=== PATIENT | female | born 1940 | race Caucasian/White ===

== ENCOUNTER 2017-04-22 16:25 | Emergency (ER) | payer MEDICARE, MEDICAID ==
[2017-04-22 16:53] VITALS: BP 128/86; PULSE 94; RESP 18; TEMP 97.4; O2SAT 98
--- NOTE | 2017-04-22 18:07 | RAD ---
PROCEDURE: Radiographs of the Right Shoulder HISTORY: shoulder pain s/p injury COMPARISON: None available. FINDINGS: BONES: Abnormal appearance of the glenoid/scapula appears consistent with fracture. Remainder the visualized osseous structures appear intact.The distal clavicle and underlying ribs appear intact. JOINTS: No acute dislocation. SOFT TISSUES: Soft tissues appear unremarkable. No evidence of radiopaque foreign body. IMPRESSION: Abnormal appearance of the glenoid/scapula appears consistent with fracture. CT may be considered for further evaluation if indicated.
--- NOTE | 2017-04-22 18:31 | ED PDOC ---
HPI: General Adult Time Seen by Provider: 04/22/17 17:11 Chief Complaint (Nursing): Upper Extremity Problem/Injury Chief Complaint (Provider): Right shoulder pain s/p trip and fall History Per: Patient History/Exam Limitations: no limitations Onset/Duration Of Symptoms: Hrs Have you had recent travel within the past 21 days to any of the following countries: [place], [place], [place] or [place]?: No Current Symptoms Are (Timing): Still Present Additional Complaint(s): Pt was walking and states the rubber part of her shoe got caught on the floor and she tripped landing on the right shoulder. Localized pain. Worse with movement. No N/V, chest pain, SOB Past Medical History Reviewed: Historical Data, Nursing Documentation, Vital Signs Vital Signs: Last Vital Signs Temp 97.4 F L 04/22/17 16:47 Pulse 94 H 04/22/17 16:47 Resp 18 04/22/17 16:47 BP 128/86 04/22/17 16:47 Pulse Ox 98 04/22/17 18:31 - Medical History PMH: No Chronic Diseases - Surgical History Surgical History: No Surg Hx - Family History Family History: States: No Known Family Hx - Living Arrangements Living Arrangements: With Family - Allergies Allergies/Adverse Reactions: Allergies Allergy/AdvReac Type Severity Reaction Status Date / Time No Known Allergies Allergy Verified 04/22/17 16:47 Review of Systems ROS Statement: Except As Marked, All Systems Reviewed And Found Negative Constitutional: Negative for: Fever, Chills Musculoskeletal: Positive for: Other (Left shoulder pain) Physical Exam - Reviewed Nursing Documentation Reviewed: Yes Vital Signs Reviewed: Yes - Physical Exam Appears: Positive for: Well, Non-toxic, No Acute Distress Head Exam: Positive for: ATRAUMATIC, NORMAL INSPECTION, NORMOCEPHALIC Skin: Positive for: Warm. Negative for: Normal Color (No ecchymosis, no erythema ) Eye Exam: Positive for: Normal appearance ENT: Positive for: Normal ENT Inspection Neck: Positive for: Normal, Painless ROM Cardiovascular/Chest: Positive for: Regular Rate, Rhythm Respiratory: Positive for: Normal Breath Sounds. Negative for: Accessory Muscle Use Back: Positive for: Normal Inspection Extremity: Positive for: Normal ROM Neurologic/Psych: Positive for: Alert, Oriented - ECG O2 Sat by Pulse Oximetry: 98 Medical Decision Making Medical Decision Making: Abnormal area seen inferior to glenoid cavity. X-ray reviewed with Dr. Hummel. Radiologist called for reading. Disposition - Clinical Impression Clinical Impression: Shoulder injury - Patient ED Disposition Is Patient to be Admitted: Transfer of Care - Disposition Disposition: Transfer of Care Disposition Time: 20:05 Condition: STABLE Forms: [employer] (Syrian)
--- NOTE | 2017-04-22 20:14 | CT ---
EXAM: CT Right Upper Extremity Without Intravenous Contrast, Shoulder EXAM DATE/TIME: 04/22/2017 6:38 PM CLINICAL HISTORY: 77 years old, female; Injury or trauma; Fall; Initial encounter; Blunt trauma (contusions or hematomas; Shoulder; Right; Additional info: Shoulder, include scapula TECHNIQUE: Axial computed tomography images of the right shoulder without intravenous contrast. All CT scans at this facility use one or more dose reduction techniques, viz.: automated exposure control; ma/kV adjustment per patient size (including targeted exams where dose is matched to indication; i.e. head); or iterative reconstruction technique. Coronal and sagittal reformatted images were created and reviewed. COMPARISON: There are no prior studies for comparison. FINDINGS: Bones/joints: Clavicle is intact. There are degenerative changes at the acromioclavicular joint. There are degenerative changes in the acromion. Proximal humerus is intact. There are degenerative changes in the humeral head. There is a comminuted fracture of the inferior aspect of the glenoid. There is inferior and anterior displacement of the largest inferior fracture. Fragment appears rotated. Body of the scapula is intact. Acromium and coracoid processes are intact. There are degenerative changes in the acromium. No rib fractures are identified. Soft tissues: No focal infiltrate is seen in the visualized portion of the right lung. There is a 4.8 mm superior segment right lower lobe nodule. There is a 6.3 mm right middle lobe nodule IMPRESSION: Fracture of the inferior aspect of the glenoid Pulmonary nodules, infectious/inflammatory versus neoplastic, clinical correlation advised For low-risk patients recommend follow-up chest CT at 3-6 months. If unchanged consider an additional follow-up CT at 18-24 months. For high-risk patients (smoking history or other known risk factors) initial follow-up chest CT at 3-6 months and if unchanged, 18-24 months.
--- NOTE | 2017-04-22 21:09 | ED PDOC ---
"- ECG O2 Sat by Pulse Oximetry: 98 - Progress ED Course And Treament: 77yo F in ER for eval of shoulder injury pending CT read. xray shows fx to scapular pt given Tylenol for pain Re-evaluation Time: 21:08 Condition: Re-examined (pt still with pain given tramadol) Medical Decision Making Medical Decision Making: Ct scan: FINDINGS: Bones/joints: Clavicle is intact. There are degenerative changes at the acromioclavicular joint. There are degenerative changes in the acromion. Proximal humerus is intact. There are degenerative changes in the humeral head. There is a comminuted fracture of the inferior aspect of the glenoid. There is inferior and anterior displacement of the largest inferior fracture. Fragment appears rotated. Body of the scapula is intact. Acromium and coracoid processes are intact. There are degenerative changes in the acromium. No rib fractures are identified. Soft tissues: No focal infiltrate is seen in the visualized portion of the right lung. There is a 4.8 mm superior segment right lower lobe nodule. There is a 6.3 mm right middle lobe nodule IMPRESSION: Fracture of the inferior aspect of the glenoid Pulmonary nodules, infectious/inflammatory versus neoplastic, clinical correlation advised For low-risk patients recommend follow-up chest CT at 3-6 months. If unchanged consider an additional follow-up CT at 18-24 months. For high-risk patients (smoking history or other known risk factors) initial follow-up chest CT at 3-6 months and if unchanged, 18-24 months. SARAH GOINS | Final Radiology Report CONFIDENTIALITY STATEMENT This report is intended only for use by the referring physician, and only in accordance with law. If you received this in error, call [phone]. Page 2 of 2 Thank you for allowing us to participate in the care of your patient. Dictated and Authenticated by: Saritha Khan MD 04/22/2017 8:13 PM Eastern Time ([place] & [place]) MD Wilder consulted-suggests sling and f.u in office this week. Pt will be d/ c with ultram for pain control pt given copy of CT scan results. Disposition - Clinical Impression Clinical Impression: Shoulder injury, Scapular fracture - POA Present On Arrival: None - Disposition Referrals: Boiardo,Bridger A III, MD [Staff Provider] - [facility] [Outside] Disposition: Routine/Home Disposition Time: 21:48 Condition: STABLE Prescriptions: Tramadol HCl [Ultram] 50 mg PO Q6 #15 tab Instructions: Scapular Fracture (ED) Print Language: GERMAN Progress Note - Review of Symptoms General: No: Chills, Night Sweats, Fatigue, Malaise, Appetite, Other HEENT: No: Head Aches, Visual Changes, Eye Pain, Ear Pain, Dysphasia, Sinus Congestion, Post Nasal Drip, Sore Throat, Other Cardiovascular: No: Chest Pain, Palpitations, Orthopnea, Paroxysmal Noc. Dyspnea , Edema, Light Headedness, Other Gastrointestinal: No: Nausea, Vomiting, Abdominal Pain, Diarrhea, Constipation, Melena, Hematochezia, Other Genitourinary: No: Dysuria, Frequency, Incontinence, Hematuria, Retention, Other Musculoskeletal: No: Muscle Pain, Joint Pain, Other Neurological: No: Weakness, Numbness, Incoordination, Change in speech, Confusion, Seizures, Other"
== END 2017-04-22 22:15 | disposition home or self-care (01) ==
LOC: H.ER 16:25
DX: S42.101A Fracture of unspecified part of scapula, right shoulder, initial encounter for closed fracture (principal); W01.0XXA Fall on same level from slipping, tripping and stumbling without subsequent striking against object, initial encounter; Y92.89 Other specified places as the place of occurrence of the external cause

== ENCOUNTER 2018-06-27 12:01 | Observation (INO) | payer MEDICARE, MEDICAID ==
[2018-06-27] MEDS ORDERED: Albuterol-Ipratrop 3 mg / 0.5 (3 ml) UD INH STA (12:34)
--- NOTE | 2018-06-27 12:40 | ED PDOC ---
HPI: Chest Pain Time Seen by Provider: 06/27/18 12:12 Chief Complaint (Nursing): Chest Pain Chief Complaint (Provider): Chest Pain History Per: Patient History/Exam Limitations: no limitations Onset/Duration Of Symptoms: Days (x3) Current Symptoms Are (Timing): Still Present Additional Complaint(s): Patient is an 78 y/o female with a PMHx of asthma and diabetes who was brought into the ED for evaluation of a cough productive of white sputum for the past three days. Patient admits to mid-sternal chest pain and SOB when coughing. Patient denies fever. PCP: None Provided Past Medical History Reviewed: Historical Data, Nursing Documentation, Vital Signs Vital Signs: Last Vital Signs Temp 98.3 F 06/27/18 12:14 Pulse 90 06/27/18 12:14 Resp 16 06/27/18 12:14 BP 123/73 06/27/18 12:33 Pulse Ox 99 06/27/18 12:14 - Medical History PMH: Asthma, Diabetes Denies: Chronic Kidney Disease - Surgical History Surgical History: No Surg Hx - Family History Family History: States: No Known Family Hx - Social History Current smoker - smoking cessation education provided: No Ex-Smoker (has not smoked in the last 12 months): No - Home Medications Home Medications: Ambulatory Orders Medication Instructions Recorded Esomeprazole Magnesium [Nexium] 40 mg PO DAILY 06/27/18 metFORMIN [glucOPHAGE] 500 mg PO BID 06/27/18 Azithromycin [Zithromax] 250 mg PO DAILY #4 tab 06/28/18 Promethazine DM [Phenergan DM 5 ml PO Q6 PRN #200 cup 06/28/18 Syrup] - Allergies Allergies/Adverse Reactions: Allergies Allergy/AdvReac Type Severity Reaction Status Date / Time No Known Allergies Allergy Verified 04/22/17 16:47 Review of Systems ROS Statement: Except As Marked, All Systems Reviewed And Found Negative Constitutional: Negative for: Fever Cardiovascular: Positive for: Chest Pain (midsternal) Respiratory: Positive for: Cough, Shortness of Breath (when coughing), Sputum (white) Physical Exam - Reviewed Nursing Documentation Reviewed: Yes Vital Signs Reviewed: Yes - Physical Exam Appears: Positive for: Non-toxic, No Acute Distress Head Exam: Positive for: ATRAUMATIC, NORMAL INSPECTION, NORMOCEPHALIC Skin: Positive for: Normal Color, Warm, Dry Eye Exam: Positive for: EOMI, Normal appearance, PERRL ENT: Positive for: Normal ENT Inspection Neck: Positive for: Normal, Painless ROM, Supple Cardiovascular/Chest: Positive for: Regular Rate, Rhythm. Negative for: Murmur Respiratory: Positive for: Normal Breath Sounds. Negative for: Respiratory Distress Gastrointestinal/Abdominal: Positive for: Normal Exam, Soft. Negative for: Tenderness Back: Positive for: Normal Inspection. Negative for: L CVA Tenderness, R CVA Tenderness, Vertebral Tenderness Extremity: Positive for: Normal ROM. Negative for: Pedal Edema, Deformity Neurologic/Psych: Positive for: Alert, Oriented. Negative for: Motor/Sensory Deficits - Laboratory Results Result Diagrams: 06/28/18 05:21 06/28/18 05:21 - ECG ECG Rhythm: Positive for: Normal ST Segment, Sinus Rhythm Rate: 84 O2 Sat by Pulse Oximetry: 99 (RA) Pulse Ox Interpretation: Normal Medical Decision Making Medical Decision Making: Time: 1232 DDx includes but not limited to URI, PNA, and pleuritic chest pain. Plan: EKG CMP Troponin I Urine Dipstick CBC PTT Prothrombin Time Chest Portable [Rad] Duoneb 3 ml INH Blood Culture Glucose, Blood, POC Peak Flow Pre/Post TX .Pre/Post Treatment UA Time: 1504 FINDINGS: Examination limited by habitus. LUNGS: Hypoinflation. No focal consolidation. Please note that chest x-ray has limited sensitivity for the detection of pulmonary masses. PLEURA: No significant pleural effusion identified. No definite pneumothorax . CARDIOVASCULAR: Heart size appears within normal limits. CT aorta. Atherosclerotic of the aorta. OSSEOUS STRUCTURES: Osseous demineralization. Degenerative changes. VISUALIZED UPPER ABDOMEN: Unremarkable. OTHER FINDINGS: None. IMPRESSION: No focal consolidation identified. Scribe Attestation: Documented by Jb Remi, acting as a scribe for Kezia Meier MD. Provider Scribe Attestation: All medical record entries made by the Scribe were at my direction and personally dictated by me. I have reviewed the chart and agree that the record accurately reflects my personal performance of the history, physical exam, medical decision making, and the department course for this patient. I have also personally directed, reviewed, and agree with the discharge instructions and disposition. Disposition - Clinical Impression Clinical Impression: Chest pain, Acute bronchitis - Patient ED Disposition Is Patient to be Admitted: Yes - Disposition Disposition Time: 13:37 Condition: STABLE - Pt Status Changed To: Hospital Disposition Of: Observation - POA Present On Arrival: None
[2018-06-27] MEDS ORDERED: Albuterol-Ipratrop 3 mg / 0.5 (3 ml) UD ONE (12:56)
[2018-06-27 12:59] LABS: BASO % 0.6 % (0.0-2.0); EOS # 0.1 K/uL (0.0-0.7); HEMOGLOBIN 11.6 g/dL (12.0-16.0); LYMPH # 1.5 K/uL (1.0-4.3); LYMPH % 25.9 % (20.0-40.0); MEAN CORPUSCULAR HEMOGLOBIN 24.9 pg (27.0-31.0); MEAN PLATELET VOLUME 8.9 fl (7.2-11.7); MONO # 0.6 K/uL (0.0-0.8); MONO % 10.5 % (0.0-10.0); NEUT # 3.5 K/uL (1.8-7.0); RBC 4.67 Mil/uL (3.80-5.20); RED CELL DISTRIBUTION WIDTH 19.1 % (11.5-14.5); WHITE BLOOD COUNT 5.8 K/uL (4.8-10.8)
[2018-06-27 13:07] LABS: INR 1.1
[2018-06-27 13:10] LABS: PARTIAL THROMBOPLASTIN TIME 28.5 Seconds (25.6-37.1)
[2018-06-27 13:17] LABS: ALB/GLOB RATIO 1.1 (1.0-2.1); ALBUMIN 4.2 g/dL (3.5-5.0); ALT/SGPT 32 U/L (9-52); AST/SGOT 31 U/L (14-36); BLOOD UREA NITROGEN 13 mg/dl (7-17); CALCIUM 9.5 mg/dL (8.4-10.2); GFR NON-AFRICAN AMERICAN > 60
[2018-06-27] MEDS ORDERED: Azithromycin 500 MG in Sodium Chloride 0.9% 250 ML IV STA (13:34)
[2018-06-27] MEDS ORDERED: Azithromycin 500 MG IV IVPB ONE (13:45)
[2018-06-27] MEDS ORDERED: Albuterol-Ipratrop 3 mg / 0.5 (3 ml) UD INH PRN (14:23)
[2018-06-27] MEDS ORDERED: Promethazine DM 6.25 mg-15 mg/5 ml Syrup PO PRN (14:23)
--- NOTE | 2018-06-27 14:58 | RAD ---
HISTORY: CP COMPARISON: Chest x-ray performed 05/04/13 TECHNIQUE: Chest, one view. FINDINGS: Examination limited by habitus. LUNGS: Hypoinflation. No focal consolidation. Please note that chest x-ray has limited sensitivity for the detection of pulmonary masses. PLEURA: No significant pleural effusion identified. No definite pneumothorax . CARDIOVASCULAR: Heart size appears within normal limits. CT aorta. Atherosclerotic of the aorta. OSSEOUS STRUCTURES: Osseous demineralization. Degenerative changes. VISUALIZED UPPER ABDOMEN: Unremarkable. OTHER FINDINGS: None. IMPRESSION: No focal consolidation identified.
[2018-06-27 15:20] LABS: SQUAMOUS EPITHIAL 1 /hpf (0-5); URINE BILIRUBIN NEGATIVE (NEGATIVE); URINE BLOOD NEGATIVE (NEGATIVE); URINE CLARITY CLEAR (Clear); URINE COLOR YELLOW (YELLOW); URINE GLUCOSE (UA) NEG (NEGATIVE); URINE LEUKOCYTE ESTERASE NEG Leu/uL (Negative); URINE PROTEIN NEGATIVE (NEGATIVE); URINE UROBILINOGEN 0.2-1.0 mg/dL (0.2-1.0)
--- NOTE | 2018-06-27 18:49 | CARD ---
APPROVED REPORT Date of service: 06/27/2018 EKG Measurement Heart [id number] <Conclusion> Normal sinus rhythm Normal ECG
[2018-06-27] MEDS: guaiFENesin 600 mg ER Tab PO SCH (21:49)
[2018-06-28 06:46] LABS: BASO # 0.1 K/uL (0.0-0.2); BASO % 0.8 % (0.0-2.0); EOS # 0.2 K/uL (0.0-0.7); EOS % 2.9 % (0.0-4.0); HEMOGLOBIN 11.5 g/dL (12.0-16.0); LYMPH % 33.9 % (20.0-40.0); MEAN CELL VOLUME 77.2 fl (81.0-99.0); MEAN CORPUSCULAR HEMOGLOBIN 25.1 pg (27.0-31.0); MEAN CORPUSCULAR HGB CONC 32.5 g/dL (33.0-37.0); MEAN PLATELET VOLUME 9.3 fl (7.2-11.7); MONO # 0.5 K/uL (0.0-0.8); MONO % 8.9 % (0.0-10.0); NEUT # 3.2 K/uL (1.8-7.0); NEUT % 53.5 % (50.0-75.0); RBC 4.58 Mil/uL (3.80-5.20); RED CELL DISTRIBUTION WIDTH 19.1 % (11.5-14.5); WHITE BLOOD COUNT 5.9 K/uL (4.8-10.8)
[2018-06-28 06:48] LABS: ALB/GLOB RATIO 1.1 (1.0-2.1); ALBUMIN 3.9 g/dL (3.5-5.0); ALT/SGPT 33 U/L (9-52); AST/SGOT 28 U/L (14-36); BLOOD UREA NITROGEN 16 mg/dl (7-17); CALCIUM 9.3 mg/dL (8.4-10.2); GFR NON-AFRICAN AMERICAN > 60
[2018-06-28] MEDS: guaiFENesin 600 mg ER Tab PO SCH (08:59)
[2018-06-28] MEDS ORDERED: Azithromycin 500 MG in Sodium Chloride 0.9% 250 ML IVPB SCH (09:00)
[2018-06-28] MEDS ORDERED: Pantoprazole 40 mg EC Tab PO SCH (09:00)
--- NOTE | 2018-06-28 13:22 | CP.PCM.CON ---
History of Present Illness - History of Present Illness History of Present Illness: I was asked to see patinet by Dr Garcia and Dr Gaines patient seen 07/04/18 1320 Patient is a 78 year old fmelae with HTN, DM who presents with chest pain. Patient has had URI and cough for the past 2 weeks, and was noted to have dyspne a and makayla paiin. Her pain is pleuritic. She denies exertional chest pain. Review of Systems - Constitutional Constitutional: absent: As Per HPI, Anorexia, Chills, Daytime Sleepiness, Excessive Sweating, Fatigue, Fever, Frequent Falls, Headache, Increased Appetite, Lethargy, Malaise, Night Sweats, Snoring, Sleep Apnea, Weight Gain, Weight Loss, Weakness, Other - EENT Eyes: absent: As Per HPI, Blind Spots, Blurred Vision, Change in Vision, Decreased Night Vision, Diplopia, Discharge, Dry Eye, Exophthalmos, Floaters, Irritation, Itchy Eyes, Loss of Peripheral Vision, Pain, Photophobia, Requires Corrective Lenses, Sees Flashes, Spots in Vision, Tunnel Vision, Other Visual Disturbances, Loss of Vision, Other Ears: absent: As Per HPI, Decreased Hearing, Ear Discharge, Ear Pain, Tinnitus, Abnormal Hearing, Disequilibrium, Dizziness, Other Nose/Mouth/Throat: absent: As Per HPI, Epistaxis, Nasal Congestion, Nasal Discharge, Nasal Obstruction, Nasal Trauma, Nose Pain, Post Nasal Drip, Sinus Pain, Sinus Pressure, Bleeding Gums, Change in Voice, Dental Pain, Dry Mouth, Dysphagia, Halitosis, Hoarsness, Lip Swelling, Mouth Lesions, Mouth Pain, Odynophagia, Sore Throat, Throat Swelling, Tongue Swelling, Facial Pain, Neck Pain, Neck Mass, Other - Breasts Breasts: absent: As Per HPI, Change in Shape, Mass, Pain, Nipple Discharge, Nipple Inversion, Skin Changes, Swelling, Other - Cardiovascular Cardiovascular: absent: As Per HPI, Acrocyanosis, Chest Pain, Chest Pain at Rest, Chest Pain with Activity, Claudication, Diaphoresis, Dyspnea, Dyspnea on Exertion, Edema, Irregular Heart Rhythm, Pain Radiating to Arm/Neck/Jaw, Leg Edema, Leg Ulcers, Lightheadedness, Orthopnea, Palpitations, Paroxysmal Nocturnal Dyspnea, Pedal Edema, Radiating Pain, Rapid Heart Rate, Slow Heart Rate, Syncope, Other - Respiratory Respiratory: Cough, Chest Congestion - Gastrointestinal Gastrointestinal: absent: As Per HPI, Abdominal Pain, Belching, Bloating, Change in Bowel Habits, Change in Stool Character, Coffee Ground Emesis, Constipation, Cramping, Diarrhea, Dyspepsia, Dysphagia, Early Satiety, Excessive Flatus, Fecal Incontinence, Heartburn, Hematemesis, Hematochezia, Loose Stools, Melena, Nausea, Odynophagia, Temesmus, Vomiting, Other - Genitourinary Genitourinary: absent: As Per HPI, Change in Urinary Stream, Difficulty Urinating, Dysuria, Flank Pain, Hematuria, Pyuria, Nocturia, Urinary Incontinence, Urinary Frequency, Urinary Hesitance, Urinary Urgency, Voiding Freq/Small Amts, Freq UTI, Hx Renal/Bladder Calculi, Hx /Renal Surgery, Blad anderson Distension, Other - Musculoskeletal Musculoskeletal: absent: As Per HPI, Abnormal Gait, Arthralgias, Atrophy, Back Pain, Deformity, Joint Swelling, Limited Range of Motion, Loss of Height, Muscle Cramps, Muscle Weakness, Myalgias, Neck Pain, Numbness, Radiating Pain into Limb, Stiffness, Tingling, Other - Integumentary Integumentary: absent: As Per HPI, Acne, Alopecia, Bleeding Lesions, Change in Hair, Change in Nails, Change in Pigmentation, Changing Lesions, Dry Skin, Erythema, Furuncle, Hirsutism, Lesions, New Lesions, Non-Healing Lesions, Photosensitivity, Pruritus, Rash, Skin Pain, Skin Ulcer, Sores, Striae, Swelling, Unusual Bruising, Wounds, Jaundice, Other - Neurological Neurological: absent: As Per HPI, Abnormal Gait, Abnormal Hearing, Abnormal Movements, Abnormal Speech, Behavioral Changes, Burning Sensations, Confusion, Convulsions, Disequilibrium, Dizziness, Numbness, Focal Weakness, Frequent Falls, Headaches, Lack of Coordination, Loss of Vision, Memory Loss, Paresthesias, Radicular Pain, Restless Legs, Sensory Deficit, Syncope, Tingling, Tremor, Vertigo, Weakness, Other Visual Disturbances, Other - Psychiatric Psychiatric: absent: As Per HPI, Abnormal Sleep Pattern, Anhedonia, Anxiety, Auditory Hallucinations, Behavioral Changes, Change in Appetite, Change in Libido, Confusion, Depression, Difficulty Concentrating, Hallucinations, Homicidal Ideation, Hopelessness, Irritability, Memory Loss, Mood Swings, Panic Attacks, Paranoia, Suicidal Ideation, Visual Hallucinations, Tactile Hallucinations, Other - Endocrine Endocrine: absent: As Per HPI, Change in Body Appearance, Change in Libido, Cold Intolorance, Deepening of Voice, Excessive Sweating, Fatigue, Flushing, Heat Intolorance, Increase in Ring/Shoe/Hat Size, Palpitations, Polydipsia, Polyphagia, Polyuria, Other - Hematologic/Lymphatic Hematologic: absent: As Per HPI, Easy Bleeding, Easy Bruising, Lymphadenopathy, Other Past Patient History - Past Social History Smoking Status: Never Smoked - CARDIAC Hx Cardiac Disorders: No - PULMONARY Hx Asthma: Yes - NEUROLOGICAL Hx Neurological Disorder: No - HEENT Hx HEENT Problems: No - RENAL Hx Chronic Kidney Disease: No - ENDOCRINE/METABOLIC Hx Endocrine Disorders: Yes (diabetes type 2) - HEMATOLOGICAL/ONCOLOGICAL Hx AIDS: No Hx Human Immunodeficiency Virus (HIV): No - INTEGUMENTARY Hx Dermatological Problems: No - MUSCULOSKELETAL/RHEUMATOLOGICAL Hx Falls: No - GASTROINTESTINAL Hx Gastrointestinal Disorders: No - GENITOURINARY/GYNECOLOGICAL Hx Genitourinary Disorders: No - PSYCHIATRIC Hx Substance Use: No - SURGICAL HISTORY Hx Surgeries: No Meds Allergies/Adverse Reactions: Allergies Allergy/AdvReac Type Severity Reaction Status Date / Time No Known Allergies Allergy Verified 04/22/17 16:47 - Medications Medications: Current Medications Albuterol/Ipratropium (Duoneb 3 Mg/0.5 Mg (3 Ml) Ud) 3 ml INH RQ4 PRN PRN Reason: Shortness of Breath Guaifenesin (Mucinex La) 600 mg PO Q12 STEFANIE Last Admin: 06/28/18 08:59 Dose: 600 mg Azithromycin 500 mg/ Sodium (Chloride) 250 mls @ 250 mls/hr IVPB DAILY STEFANIE; Protocol Last Admin: 06/28/18 10:23 Dose: 250 mls/hr Metformin HCl (Glucophage) 500 mg PO BID STEFANIE Last Admin: 06/28/18 08:59 Dose: 500 mg Pantoprazole Sodium (Protonix Ec Tab) 40 mg PO DAILY STEFANIE Last Admin: 06/28/18 08:59 Dose: 40 mg Promethazine HCl/Dextromethorphan (Phenergan Dm Syrup) 5 ml PO Q6 PRN PRN Reason: Cough Last Admin: 06/28/18 10:28 Dose: 5 ml Physical Exam - Constitutional Appears: Non-toxic - Head Exam Head Exam: NORMAL INSPECTION - Eye Exam Eye Exam: Normal appearance - ENT Exam ENT Exam: Mucous Membranes Moist - Neck Exam Neck exam: Positive for: Full Rom - Respiratory Exam Respiratory Exam: Decreased Breath Sounds - Cardiovascular Exam Cardiovascular Exam: REGULAR RHYTHM - GI/Abdominal Exam GI & Abdominal Exam: Normal Bowel Sounds - Rectal Exam Rectal Exam: Deferred - Extremities Exam Extremities exam: Negative for: pedal edema - Back Exam Back exam: NORMAL INSPECTION - Neurological Exam Neurological exam: Alert, Oriented x3 - Psychiatric Exam Psychiatric exam: Normal Affect - Skin Skin Exam: Normal Color Results - Vital Signs Recent Vital Signs: Last Vital Signs Temp 98.1 F 06/28/18 12:58 Pulse 84 06/28/18 12:58 Resp 20 06/28/18 12:58 BP 96/54 L 06/28/18 12:58 Pulse Ox 96 06/28/18 12:58 - Labs Result Diagrams: 06/28/18 05:21 06/28/18 05:21 Labs: Laboratory Results - last 24 hr 06/27/18 06/27/18 06/27/18 12:45 14:39 15:50 WBC RBC Hgb Hct MCV MCH MCHC RDW Plt Count MPV Neut % (Auto) Lymph % (Auto) [place] % (Auto) Eos % (Auto) Baso % (Auto) Neut # (Auto) Lymph # (Auto) [place] # (Auto) Eos # (Auto) Baso # (Auto) Sodium Potassium Chloride Carbon Dioxide Anion Gap BUN Creatinine Est GFR ( Amer) Est GFR (Non-Af Amer) POC Glucose (mg/dL) 81 Random Glucose Calcium Total Bilirubin AST ALT Alkaline Phosphatase Troponin I < 0.0120 Total Protein Albumin Globulin Albumin/Globulin Ratio Urine Color Yellow Urine Clarity Clear Urine pH 6.0 Ur Specific [place] 1.011 Urine Protein Negative Urine Glucose (UA) Neg Urine Ketones Negative Urine Blood Negative Urine Nitrate Negative Urine Bilirubin Negative Urine Urobilinogen 0.2-1.0 Ur Leukocyte Esterase Neg Urine RBC (Auto) 2 Urine Microscopic WBC 1 Ur Squamous Epith Cells 1 06/27/18 06/27/18 06/28/18 20:00 21:46 05:21 WBC 5.9 RBC 4.58 Hgb 11.5 L Hct 35.3 MCV 77.2 L MCH 25.1 L MCHC 32.5 L RDW 19.1 H Plt Count 170 MPV 9.3 Neut % (Auto) 53.5 Lymph % (Auto) 33.9 [place] % (Auto) 8.9 Eos % (Auto) 2.9 Baso % (Auto) 0.8 Neut # (Auto) 3.2 Lymph # (Auto) 2.0 [place] # (Auto) 0.5 Eos # (Auto) 0.2 Baso # (Auto) 0.1 Sodium Potassium Chloride Carbon Dioxide Anion Gap BUN Creatinine Est GFR ( Amer) Est GFR (Non-Af Amer) POC Glucose (mg/dL) 146 H Random Glucose Calcium Total Bilirubin AST ALT Alkaline Phosphatase Troponin I < 0.0120 Total Protein Albumin Globulin Albumin/Globulin Ratio Urine Color Urine Clarity Urine pH Ur Specific [place] Urine Protein Urine Glucose (UA) Urine Ketones Urine Blood Urine Nitrate Urine Bilirubin Urine Urobilinogen Ur Leukocyte Esterase Urine RBC (Auto) Urine Microscopic WBC Ur Squamous Epith Cells 06/28/18 06/28/18 06/28/18 05:21 05:33 10:53 WBC RBC Hgb Hct MCV MCH MCHC RDW Plt Count MPV Neut % (Auto) Lymph % (Auto) [place] % (Auto) Eos % (Auto) Baso % (Auto) Neut # (Auto) Lymph # (Auto) [place] # (Auto) Eos # (Auto) Baso # (Auto) Sodium 140 Potassium 4.2 Chloride 99 Carbon Dioxide 27 Anion Gap 18 BUN 16 Creatinine 0.7 Est GFR ( Amer) > 60 Est GFR (Non-Af Amer) > 60 POC Glucose (mg/dL) 106 258 H Random Glucose 109 H Calcium 9.3 Total Bilirubin 0.7 AST 28 ALT 33 Alkaline Phosphatase 82 Troponin I < 0.0120 Total Protein 7.3 Albumin 3.9 Globulin 3.5 Albumin/Globulin Ratio 1.1 Urine Color Urine Clarity Urine pH Ur Specific [place] Urine Protein Urine Glucose (UA) Urine Ketones Urine Blood Urine Nitrate Urine Bilirubin Urine Urobilinogen Ur Leukocyte Esterase Urine RBC (Auto) Urine Microscopic WBC Ur Squamous Epith Cells - EKG Data EKG Interpreted by: Myself EKG shows normal: Sinus rhythm Assessment & Plan (1) Chest pain Assessment and Plan: EKG reveals normal sinus rhythm. symptoms are not cardiac in nature. stable for d/c from cardiac standpoint. Risk factor modification. consider outpatient stress test Status: Acute (2) HTN (hypertension) Assessment and Plan: blood pressure control Status: Acute (3) Diabetes Assessment and Plan: glucose control. Status: Acute
[2018-06-28 15:50] VITALS: RESP 17; TEMP 99.1
[2018-06-28 16:33] VITALS: BP 93/52
--- NOTE | 2018-06-28 16:43 | CP.PCM.HP ---
History of Present Illness - History of Present Illness History of Present Illness: pt admitted for cp, congesiton, cough. no f/c, n/v/d. started on zithromax and all labs noted. torps x 3 negative and pt cleared for dc by cardio Present on Admission - Present on Admission Any Indicators Present on Admission: Yes History of Uncontrolled Diabetes: Yes Review of Systems - Cardiovascular Cardiovascular: As Per HPI, Chest Pain - Respiratory Respiratory: As Per HPI, Cough, Chest Congestion Past Patient History - Past Social History Smoking Status: Never Smoked - CARDIAC Hx Cardiac Disorders: No - PULMONARY Hx Asthma: Yes - NEUROLOGICAL Hx Neurological Disorder: No - HEENT Hx HEENT Problems: No - RENAL Hx Chronic Kidney Disease: No - ENDOCRINE/METABOLIC Hx Endocrine Disorders: Yes (diabetes type 2) - HEMATOLOGICAL/ONCOLOGICAL Hx AIDS: No Hx Human Immunodeficiency Virus (HIV): No - INTEGUMENTARY Hx Dermatological Problems: No - MUSCULOSKELETAL/RHEUMATOLOGICAL Hx Falls: No - GASTROINTESTINAL Hx Gastrointestinal Disorders: No - GENITOURINARY/GYNECOLOGICAL Hx Genitourinary Disorders: No - PSYCHIATRIC Hx Substance Use: No - SURGICAL HISTORY Hx Surgeries: No Meds Home Medications: Home Medication List Medication Instructions Recorded Confirmed Type Azithromycin [Zithromax] 250 mg PO DAILY #4 tab 06/28/18 Rx RX: Promethazine DM [Phenergan DM 5 ml PO Q6 PRN #200 cup 06/28/18 Rx Syrup] Allergies/Adverse Reactions: Allergies Allergy/AdvReac Type Severity Reaction Status Date / Time No Known Allergies Allergy Verified 04/22/17 16:47 Physical Exam - Constitutional Appears: Well, Non-toxic, No Acute Distress - Head Exam Head Exam: ATRAUMATIC, NORMAL INSPECTION, NORMOCEPHALIC - Eye Exam Eye Exam: EOMI, Normal appearance, PERRL Pupil Exam: NORMAL ACCOMODATION, PERRL - ENT Exam ENT Exam: Mucous Membranes Moist, Normal Exam - Neck Exam Neck exam: Positive for: Normal Inspection - Respiratory Exam Respiratory Exam: Clear to Auscultation Bilateral, NORMAL BREATHING PATTERN - Cardiovascular Exam Cardiovascular Exam: REGULAR RHYTHM, RRR, +S1, +S2 - GI/Abdominal Exam GI & Abdominal Exam: Normal Bowel Sounds, Soft. absent: Tenderness - Extremities Exam Extremities exam: Positive for: full ROM, normal capillary refill, normal inspection, pedal pulses present - Back Exam Back exam: FULL ROM, NORMAL INSPECTION - Neurological Exam Neurological exam: Alert, CN II-XII Intact, Normal Gait, Oriented x3, Reflexes Normal - Psychiatric Exam Psychiatric exam: Normal Affect, Normal Mood - Skin Skin Exam: Dry, Intact, Normal Color, Warm Results - Vital Signs Recent Vital Signs: Last Vital Signs Temp 99.1 F 06/28/18 16:32 Pulse 82 06/28/18 16:32 Resp 17 06/28/18 16:32 BP 93/52 L 06/28/18 16:32 Pulse Ox 96 06/28/18 16:32 - Labs Result Diagrams: 06/28/18 05:21 06/28/18 05:21 Labs: Laboratory Results - last 24 hr 06/27/18 06/27/18 06/28/18 20:00 21:46 05:21 WBC 5.9 RBC 4.58 Hgb 11.5 L Hct 35.3 MCV 77.2 L MCH 25.1 L MCHC 32.5 L RDW 19.1 H Plt Count 170 MPV 9.3 Neut % (Auto) 53.5 Lymph % (Auto) 33.9 [place] % (Auto) 8.9 Eos % (Auto) 2.9 Baso % (Auto) 0.8 Neut # (Auto) 3.2 Lymph # (Auto) 2.0 [place] # (Auto) 0.5 Eos # (Auto) 0.2 Baso # (Auto) 0.1 Sodium Potassium Chloride Carbon Dioxide Anion Gap BUN Creatinine Est GFR ( Amer) Est GFR (Non-Af Amer) POC Glucose (mg/dL) 146 H Random Glucose Calcium Total Bilirubin AST ALT Alkaline Phosphatase Troponin I < 0.0120 Total Protein Albumin Globulin Albumin/Globulin Ratio 06/28/18 06/28/18 06/28/18 05:21 05:33 10:53 WBC RBC Hgb Hct MCV MCH MCHC RDW Plt Count MPV Neut % (Auto) Lymph % (Auto) [place] % (Auto) Eos % (Auto) Baso % (Auto) Neut # (Auto) Lymph # (Auto) [place] # (Auto) Eos # (Auto) Baso # (Auto) Sodium 140 Potassium 4.2 Chloride 99 Carbon Dioxide 27 Anion Gap 18 BUN 16 Creatinine 0.7 Est GFR ( Amer) > 60 Est GFR (Non-Af Amer) > 60 POC Glucose (mg/dL) 106 258 H Random Glucose 109 H Calcium 9.3 Total Bilirubin 0.7 AST 28 ALT 33 Alkaline Phosphatase 82 Troponin I < 0.0120 Total Protein 7.3 Albumin 3.9 Globulin 3.5 Albumin/Globulin Ratio 1.1 06/28/18 16:06 WBC RBC Hgb Hct MCV MCH MCHC RDW Plt Count MPV Neut % (Auto) Lymph % (Auto) [place] % (Auto) Eos % (Auto) Baso % (Auto) Neut # (Auto) Lymph # (Auto) [place] # (Auto) Eos # (Auto) Baso # (Auto) Sodium Potassium Chloride Carbon Dioxide Anion Gap BUN Creatinine Est GFR ( Amer) Est GFR (Non-Af Amer) POC Glucose (mg/dL) 94 Random Glucose Calcium Total Bilirubin AST ALT Alkaline Phosphatase Troponin I Total Protein Albumin Globulin Albumin/Globulin Ratio Assessment & Plan (1) DVT prophylaxis Assessment and Plan: sc danda ehose ambulation Status: Acute (2) Acute bronchitis Assessment and Plan: zithromax, albuterol, mucinex, phenergen Status: Acute (3) Chest pain Assessment and Plan: trops x 3 asa, cardio Status: Acute Decision To Admit - Pt Status Changed To: Hospital Disposition Of: Observation - . Bed Request Type: Telemetry Admitting Physician: Andrez Gaines
--- NOTE | 2018-06-28 16:43 | CP.PCM.DIS ---
Provider - Provider Date of Admission: 06/27/18 13:37 Attending physician: Andrez Gaines MD Consults: 06/27/18 14:24 Cardiology Consult Routine Comment: Consulting Provider: Mallory Haywood Consulting Physician: Mallory Haywood Reason for Consult: cp Time Spent in preparation of Discharge (in minutes): 15 Hospital Course - Lab Results Lab Results: Micro Results 06/27/18 12:45 Blood-Venous Blood Culture - Preliminary NO GROWTH AFTER 24 HOURS 06/27/18 12:45 Blood-Venous Blood Culture - Preliminary NO GROWTH AFTER 24 HOURS Most Recent Lab Values WBC 5.9 K/uL (4.8-10.8) 06/28/18 05:21 RBC 4.58 Mil/uL (3.80-5.20) 06/28/18 05:21 Hgb 11.5 g/dL (12.0-16.0) L 06/28/18 05:21 Hct 35.3 % (34.0-47.0) 06/28/18 05:21 MCV 77.2 fl (81.0-99.0) L 06/28/18 05:21 MCH 25.1 pg (27.0-31.0) L 06/28/18 05:21 MCHC 32.5 g/dL (33.0-37.0) L 06/28/18 05:21 RDW 19.1 % (11.5-14.5) H 06/28/18 05:21 Plt Count 170 K/uL (130-400) 06/28/18 05:21 MPV 9.3 fl (7.2-11.7) 06/28/18 05:21 Neut % (Auto) 53.5 % (50.0-75.0) 06/28/18 05:21 Lymph % (Auto) 33.9 % (20.0-40.0) 06/28/18 05:21 [place] % (Auto) 8.9 % (0.0-10.0) 06/28/18 05:21 Eos % (Auto) 2.9 % (0.0-4.0) 06/28/18 05:21 Baso % (Auto) 0.8 % (0.0-2.0) 06/28/18 05:21 Neut # (Auto) 3.2 K/uL (1.8-7.0) 06/28/18 05:21 Lymph # (Auto) 2.0 K/uL (1.0-4.3) 06/28/18 05:21 [place] # (Auto) 0.5 K/uL (0.0-0.8) 06/28/18 05:21 Eos # (Auto) 0.2 K/uL (0.0-0.7) 06/28/18 05:21 Baso # (Auto) 0.1 K/uL (0.0-0.2) 06/28/18 05:21 PT 12.0 Seconds (9.8-13.1) 06/27/18 12:45 INR 1.1 06/27/18 12:45 APTT 28.5 Seconds (25.6-37.1) 06/27/18 12:45 Sodium 140 mmol/l (132-148) 06/28/18 05:21 Potassium 4.2 MMOL/L (3.6-5.0) 06/28/18 05:21 Chloride 99 mmol/L (98-107) 06/28/18 05:21 Carbon Dioxide 27 mmol/L (22-30) 06/28/18 05:21 Anion Gap 18 (10-20) 06/28/18 05:21 BUN 16 mg/dl (7-17) 06/28/18 05:21 Creatinine 0.7 mg/dl (0.7-1.2) 06/28/18 05:21 Est GFR ( Amer) > 60 06/28/18 05:21 Est GFR (Non-Af Amer) > 60 06/28/18 05:21 POC Glucose (mg/dL) 94 mg/dL (65-110) 06/28/18 16:06 Random Glucose 109 mg/dL (65-105) H 06/28/18 05:21 Calcium 9.3 mg/dL (8.4-10.2) 06/28/18 05:21 Total Bilirubin 0.7 mg/dl (0.2-1.3) 06/28/18 05:21 AST 28 U/L (14-36) 06/28/18 05:21 ALT 33 U/L (9-52) 06/28/18 05:21 Alkaline Phosphatase 82 U/L (38-126) 06/28/18 05:21 Troponin I < 0.0120 ng/mL (0.00-0.120) 06/28/18 05:21 Total Protein 7.3 G/DL (6.3-8.2) 06/28/18 05:21 Albumin 3.9 g/dL (3.5-5.0) 06/28/18 05:21 Globulin 3.5 gm/dL (2.2-3.9) 06/28/18 05:21 Albumin/Globulin Ratio 1.1 (1.0-2.1) 06/28/18 05:21 Urine Color Yellow (YELLOW) 06/27/18 14:39 Urine Clarity Clear (Clear) 06/27/18 14:39 Urine pH 6.0 (5.0-8.0) 06/27/18 14:39 Ur Specific [place] 1.011 (1.003-1.030) 06/27/18 14:39 Urine Protein Negative mg/dL (NEGATIVE) 06/27/18 14:39 Urine Glucose (UA) Neg mg/dL (NEGATIVE) 06/27/18 14:39 Urine Ketones Negative mg/dL (NEGATIVE) 06/27/18 14:39 Urine Blood Negative (NEGATIVE) 06/27/18 14:39 Urine Nitrate Negative (NEGATIVE) 06/27/18 14:39 Urine Bilirubin Negative (NEGATIVE) 06/27/18 14:39 Urine Urobilinogen 0.2-1.0 mg/dL (0.2-1.0) 06/27/18 14:39 Ur Leukocyte Esterase Neg August/uL (Negative) 06/27/18 14:39 Urine RBC (Auto) 2 /hpf (0-3) 06/27/18 14:39 Urine Microscopic WBC 1 /hpf (0-5) 06/27/18 14:39 Ur Squamous Epith Cells 1 /hpf (0-5) 06/27/18 14:39 - Hospital Course Hospital Course: cardio, trops Discharge Exam - Head Exam Head Exam: NORMAL INSPECTION Discharge Plan - Discharge Medications Prescriptions: Azithromycin [Zithromax] 250 mg PO DAILY #4 tab RX: Promethazine DM [Phenergan DM Syrup] 5 ml PO Q6 PRN #200 cup PRN Reason: Cough - Follow Up Plan Condition: STABLE Disposition: HOME/ ROUTINE Instructions: High Blood Pressure (DC), Chest Pain (DC) Additional Instructions: Activity as tolerated, Heart healthy moderate carbohydrate diet. Follow-up w/ [facility] in 2 days, to call for appointment. final dx-cp, bronchitis, cleared by cardio for dc meds erx f/u rmg, rted prn, meds per med rec Referrals: Mallory Haywood MD [Staff Provider] -
[2018-06-28 17:35] VITALS: PULSE 84; O2SAT 99
== END 2018-06-28 17:25 | disposition home or self-care (01) ==
LOC: H.ER 12:01 → H.ERHOLD 13:37 → H.TEL 15:36
PROVIDERS: ADMIT Family Medicine; ATTEND Family Medicine
DX: R07.89 Other chest pain (principal); E11.9 Type 2 diabetes mellitus without complications; I10 Essential (primary) hypertension; J20.9 Acute bronchitis, unspecified; J45.909 Unspecified asthma, uncomplicated; J06.9 Acute upper respiratory infection, unspecified; R06.00 Dyspnea, unspecified; Z79.84 Long term (current) use of oral hypoglycemic drugs
CPT/HCPCS: 36415; 71045; 80053; 81003; 82948; 84484; 85025; 85610; 85730; 87040; 93005; 96360; 99285; G0378; J0456